=== PATIENT | female | born 1940 | race Caucasian/White ===

== ENCOUNTER 2023-07-29 11:54 | Emergency (ER) | payer MEDICARE ==
[~2023-07-29] VITALS: Ht 170.2 cm; Wt 77.3 kg
[2023-07-29] VITALS (15 sets, daily range): BP systolic 157–179; BP diastolic 73–88; PULSE 69–79; RESP 12–21; TEMP 97.5; O2SAT 95–99
[2023-07-29 12:45] LABS: BASOPHILS # (AUTO) 0.1 X10'3 (0-0.2); BASOPHILS % (AUTO) 0.6 % (0-1); EOSINOPHILS # (AUTO) 0.5 X10'3 (0-0.9); EOSINOPHILS % (AUTO) 6.3 % (0-6); HEMATOCRIT 41.4 % (35.0-45.0); HEMOGLOBIN 13.7 g/dl (12.0-16.0); LYMPHOCYTES # (AUTO) 2.1 X10'3 (1.1-4.8); MEAN CORPUSCULAR HEMOGLOBIN 29.8 PG (27.0-31.0); MEAN CORPUSCULAR HGB CONC 33.1 g/dL (33.0-36.5); MEAN CORPUSCULAR VOLUME 90.1 FL (78-98); MEAN PLATELET VOLUME 8.3 FL (7.4-10.4); MONOCYTES # (AUTO) 0.6 X10'3 (0-0.9); MONOCYTES % (AUTO) 6.6 % (2-12); NEUTROPHILS # (AUTO) 5.2 X10'3 (1.8-7.7); NEUTROPHILS % (AUTO) 61.5 % (42-75); PLATELET COUNT 265 X10'3 (140-440); RED CELL DISTRIBUTION WIDTH 13.9 % (11.5-14.5); WHITE BLOOD COUNT 8.5 X10'3 (4.5-11.0)
--- NOTE | 2023-07-29 12:55 | NUR ---
AWAITING CHRISTIN SANCHEZ TO ASSESS PT FOR SURGERY
--- NOTE | 2023-07-29 12:58 | NUR ---
DR WALLER AT BEDSIDE TO ASSESS PATIENT
[2023-07-29 13:02] LABS: ALANINE AMINOTRANSFERASE 27 U/L (12-78); ALBUMIN 3.5 G/DL (3.4-5.0); ALBUMIN/GLOBULIN RATIO 0.9 (1.1-1.5); ALKALINE PHOSPHATASE 96 IU/L (46-116); ANION GAP 10 (8-16); ASPARTATE AMINO TRANSFERASE 17 U/L (10-37); BILIRUBIN,TOTAL 0.3 MG/DL (0.1-1.0); BLOOD UREA NITROGEN 15 MG/DL (7-18); BUN/CREATININE RATIO 17.2 (10.0-20.0); CALCIUM 8.9 MG/DL (8.5-10.1); CHLORIDE 104 MMOL/L (99-107); CREATININE 0.87 MG/DL (0.40-0.90); GLUCOSE 154 MG/DL (70-104); POTASSIUM 3.5 MMOL/L (3.5-5.1); SODIUM 139 MMOL/L (135-145); TOTAL CARBON DIOXIDE 25.2 MMOL/L (24-32); TOTAL PROTEIN 7.2 G/DL (6.4-8.2); eCRCL 49 ML/MIN; eGFR 62 ML/MIN
[2023-07-29] MEDS ORDERED: fentaNYL/PF 50MCG/1 ML 2ML syringe ONE ×2 (13:02→14:05)
[2023-07-29] MEDS ORDERED: sevoflurane 250ml liquid IH ONE (13:11)
[2023-07-29 13:26] LABS: APTT 26 SECONDS (22-32); INR 0.9 INR; PROTHROMBIN TIME 10.2 SECONDS (9.0-12.0)
[2023-07-29] MEDS ORDERED: rocuronium 10mg/ml inj IV ONE (14:06)
[2023-07-29] MEDS ORDERED: dexamethasone sod phosphate 4mg/ml inj. ONE (14:06)
[2023-07-29] MEDS ORDERED: sugammadex 200mg/2ml injection IV ONE (14:06)
[2023-07-29] MEDS ORDERED: propofol inj 20 ML IV ONE (14:06)
[2023-07-29] MEDS ORDERED: LIDOcaine 2% (20mg/ml) 5ml vial ONE (14:06)
[2023-07-29] MEDS ORDERED: ondansetron/PF 4mg/2ml inj ONE (14:06)
[2023-07-29] MEDS ORDERED: mupirocin 2% ointment 22GM ONE (14:12)
[2023-07-29] MEDS ORDERED: labetalol 20mg/4ml (5mg/ml) syringe IV ONE (14:17)
[2023-07-29] MEDS ORDERED: ceFAZolin 1000mg inj ONE (14:22)
--- NOTE | 2023-07-29 14:22 | NUR ---
Received from OR via , accompanied by Anesthesiologist DR PEOPLES and report given by Anesthesiolgist. V/S ELEVATED. IV IN LOIS 20G AND IV IN RAC 20G INTACT. ON MASK AT 8 LITERS SATTING AT 100%. DRESSING WITH CARLIE BANDAGE ON OEFT LOWER EXTREMEITY, PACHECO DRAIN UNDERNEATH. Addendum: 07/29/23 at 1453 by Mignon Jaime RN Amended: Links added.
--- NOTE | 2023-07-29 14:50 | NUR ---
PATIENT WAS OFFERED PAIN MEDICATION FOR HOME FROM DOCTOR CANO. PATIENT REFUSED. EDUCATED PATIENT ON PAIN MANAGEMENT, BUT SHE STILL REFUSES.
--- NOTE | 2023-07-29 16:52 | NUR ---
PATIENT DISCHARGED FROM PACU IN STABLE CONDITION AFTER VERBAL AND WRITTEN DISCHARGE INSTRUCTIONS GIVEN. PATIENT GAVE VERBAL UNDERSTANDING OF INSTRUCTIONS GIVEN. PATIENT LEFT FACILITY VIA WHEELCHAIR WITH RN. Addendum: 07/29/23 at 1657 by Abi Trejo RN Amended: Links added.
== END 2023-07-29 16:52 | disposition home or self-care (01) ==
LOC: ER 11:56
DX: S81.812A Laceration without foreign body, left lower leg, initial encounter (principal); R79.1 Abnormal coagulation profile; Z88.0 Allergy status to penicillin; W19.XXXA Unspecified fall, initial encounter; Y93.89 Activity, other specified; Y92.89 Other specified places as the place of occurrence of the external cause; Y99.8 Other external cause status; Z79.899 Other long term (current) drug therapy
CPT/HCPCS: 13121; 13122; 36415; 71045; 73590; 80053; 85025; 85610; 85730; 86885; 86900; 86901; 93005; 99285; J0690; J1100; J2405; J2704; J3010; J3490; J7030; J7120; Z7506; Z7508; Z7512; A4618; A6253; A6446; A6449; A7000